=== PATIENT | female | born 1995 | race Caucasian/White ===

== ENCOUNTER 2022-09-07 02:34 | Emergency (ER) | payer BC ==
[2022-09-07] MEDS ORDERED: Sodium Chloride 0.9% 1,000 ML IV ONE (02:51)
[2022-09-07] MEDS ORDERED: EPINEPHrine 1 MG/1 ML Amp IM ONE (02:51)
[2022-09-07] MEDS ORDERED: methylPREDNISolone Sodium Succinate 125 MG/2 ML SDV IVPUSH ONE (02:51)
[2022-09-07] MEDS ORDERED: Famotidine 20 MG/2 ML SDV IVPUSH ONE (02:51)
== END 2022-09-07 04:57 | disposition home or self-care (01) ==
LOC: MW.ED 02:34
DX: T63.441A Toxic effect of venom of bees, accidental (unintentional), initial encounter (principal); Z91.030 Bee allergy status
CPT/HCPCS: 96361; 96372; 96374; 96375; 99283; J0171; J2930; J3490; J7030